=== PATIENT | female | born 2000 | race Caucasian/White ===

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

== ENCOUNTER 2022-02-18 04:51 | Emergency (ER) | payer OTHER ==
[2022-02-18 04:56] VITALS: BP 123/76; PULSE 75; RESP 16; TEMP 97.6
[2022-02-18 05:37] LABS: Appearance,Urine Turbid (Clear); Bilirubin,Urine Negative (Negative); Blood,Urine Large (Negative); Color,Urine Red; Glucose,Urine (UA) Negative (Negative); Ketones,Urine Negative (Negative); Leukocyte Esterase,Urine Large (Negative); Nitrite,Urine Negative (Negative); PH, Urine 6.5 (5.0-8.0); Protein,Urine 2+ (Negative); RBC,Urine >182 /hpf (0-5); Specific Gravity,Urine 1.021 (1.001-1.035); Urobilinogen,Urine <2.0 mg/dL (<2.0); WBC,Urine >182 /hpf (0-5)
[2022-02-18] MEDS ORDERED: KETOROLAC 15 MG/ML 1 ML VIAL IM STA (06:46)
--- NOTE | 2022-02-18 06:48 | ED ---
General Adult HPI - General Chief complaint: Abdominal Pain Stated complaint: Abdominal pain Time Seen by Provider: 02/18/22 06:32 Source: patient, RN notes reviewed Mode of arrival: ambulatory Limitations: no limitations - History of Present Illness Initial comments: Patient is a 21-year-old female presenting to the emergency department from home with complaints of lower abdominal pain which she notes is at the near her inguinal area and hematuria. She denies any gross hematuria at this time. She reports that the pain in her pelvic region is worse with urination. She reports some nausea but denies any vomiting or diarrhea. She denies any chest pain, shortness of breath, or flank pain. She does report some occasional hot and cold flashes but reports not checking her temperature. She recently had her menstrual cycle and is not concerned regarding or STDs. She has a past medical history significant for recurrent UTIs with her last UTI approximately 3 months ago. She also has a history of ovarian cysts. She denies any other medical history. - Related Data Previous Rx's Medication Instructions Recorded Amoxicillin 1,000 mg PO Q12H 10 Days capsule 05/12/16 Sulfamethox-Tmp 800-160Mg [Bactrim 1 tab PO Q12HR 5 Days #10 tab 02/18/22 DS 800-160 mg] Allergies Allergy/AdvReac Type Severity Reaction Status Date / Time codeine Allergy Unknown Verified 02/18/22 04:52 Review of Systems ROS Statement: Those systems with pertinent positive or pertinent negative responses have been documented in the HPI. ROS Other: All systems not noted in ROS Statement are negative. Past Medical History Past Medical History: No Reported History History of Any Multi-Drug Resistant Organisms: None Reported Past Surgical History: No Surgical Hx Reported Additional Past Surgical History / Comment(s): ovarian cyst Past Psychological History: Anxiety Smoking Status: Vaper Past Alcohol Use History: None Reported Past Drug Use History: None Reported General Exam - General Exam Comments Initial Comments: GENERAL: No acute distress, well developed, well nourished. HEENT: Normocephalic, atraumatic. Pupils equal, round, reactive to light. Moist mucous membranes. LUNGS: No respiratory distress. Clear to auscultation, no adventitious sounds, no use of accessory muscles. HEART: Regular rate and rhythm without murmur, rub, or gallop. ABDOMEN: Normal bowel sounds. Soft, non-distended. Right pelvic region tenderness. BACK: Normal inspection. No CVA tenderness. EXTREMITIES: No edema. No tenderness. Moves all extremities. NEUROLOGIC: Alert & oriented x 3. CN II-XII grossly intact. PSYCHIATRIC: Normal affect and behavior. DERMATOLOGIC: Skin intact, without rashes or lesions noted. Limitations: no limitations Course Vital Signs 02/18/22 04:53 Temperature 97.6 F Pulse Rate 75 Respiratory 16 Rate Blood Pressure 123/76 O2 Sat by Pulse 100 Oximetry Medical Decision Making - Medical Decision Making Was pt. sent in by a medical professional or institution? @ -No Did you speak to anyone other than the patient for history? @ -No Did you review nursing and triage notes? @ -Yes and agree except pain is in the pelvic region not the abdomen. Were old charts reviewed? @ -No Differential Diagnosis? @ -Differential Abdominal Pain Women: Appendicitis, Cholecystitis, diverticulosis, ischemic bowel, pancreatitis, hepatitis, UTI, gastroenteritis, AAA, incarcerated hernia, bowel obstruction, constipation, inflammatory bowel, hepatitis, peptic ulcer disease, splenic infarction, perforated viscus, vulvitis, ovarian torsion, PID, kidney stone, placenta abruption, this is not meant to be an all-inclusive list EKG interpreted by me (3pts min.)? @ -None X-rays interpreted by me (1pt min.)? @ -None CT interpreted by me (1pt min.)? @ -None U/S interpreted by me (1pt. min.)? @ -None What testing was considered but not performed? (CT, X-rays, U/S, labs)? Why? @No What meds were considered but not given? Why? @ -None Did you discuss the management of the patient with other professionals? @ -No Did you reconcile home meds? @ -No home medications Was smoking cessation discussed for >3mins.? @ -No Was critical care preformed (if so, how long)? @ -None Were there social determinants of health that impacted care today? How? (Homelessness, low income, unemployed, alcoholism, drug addiction, transportation, low edu. Level, literacy, decrease access to med. care, penitentiary, rehab)? @ -No Was there de-escalation of care discussed even if they declined? (Discuss DNR or withdrawal of care, Hospice)? @ -No What co-morbidities impacted this encounter? (DM, HTN, Smoking, COPD, CAD, Cancer, CVA, Hep., AIDS, mental health diagnosis, sleep apnea, morbid obesity)? @ -Recurrent UTIs Was patient admitted / discharged? @ -Right pelvic pain with dysuria. Pain worse with urination. Computed in triage with leukocyte esterase, no bacteria seen however given amount of RBCs and WBCs suspect UTI with cystitis. Toradol given for pain with some improvement in symptoms. Will defer further diagnostic imaging and laboratory studies in the setting of afebrile and hemodynamically stable without previous treatment for UTI. Education regarding recurrent UTIs and hematuria reviewed. Return parameters to the emergency department discussed. Will discharge home in stable condition on antibiotic therapy for UTI and follow-up with her primary care provider. Undiagnosed new problem with uncertain prognosis? @ -None Drug Therapy requiring intensive monitoring for toxicity (Heparin, Nitro, Insulin, Cardizem)? @ -None Were any procedures done? @ -None Diagnosis/symptom? @ -UTI Acute, or Chronic, or Acute on Chronic? @ -Acute Uncomplicated (without systemic symptoms) or Complicated (systemic symptoms)? @ -Uncomplicated Side effects of treatment? @ -None Exacerbation, Progression, or Severe Exacerbation] @ -No Poses a threat to life or bodily function? @ -No Case discussed with Dr. Mooney - Lab Data Lab Results 02/18/22 02/18/22 Range/Units 05:03 05:03 Urine Color Red Urine Appearance Turbid H (Clear) Urine pH 6.5 (5.0-8.0) Ur Specific [place] 1.021 (1.001-1.035) Urine Protein 2+ H (Negative) Urine Glucose (UA) Negative (Negative) Urine Ketones Negative (Negative) Urine Blood Large H (Negative) Urine Nitrite Negative (Negative) Urine Bilirubin Negative (Negative) Urine Urobilinogen <2.0 (<2.0) mg/dL Ur Leukocyte Esterase Large H (Negative) Urine RBC >182 H (0-5) /hpf Urine WBC >182 H (0-5) /hpf Urine HCG, Qual Not Detected (Not Detectd) Disposition Clinical Impression: UTI (urinary tract infection), Microscopic hematuria Disposition: HOME SELF-CARE Condition: Stable Instructions (If sedation given, give patient instructions): Urinary Tract Infection in Women (ED), Hematuria (ED) Additional Instructions: Please complete course of antibiotic therapy as prescribed. Stay well hydrated drinking plenty of water. Please follow-up with your primary care provider. Please return to the Emergency Department if symptoms worsen or any other concerns. Prescriptions: Sulfamethox-Tmp 800-160Mg [Bactrim DS 800-160 mg] 1 tab PO Q12HR 5 Days #10 tab Is patient prescribed a controlled substance at d/c from ED?: No Referrals: None,Stated [Primary Care Provider] - 1-2 days Time of Disposition: 06:56
== END 2022-02-18 07:09 | disposition home or self-care (01) ==
LOC: EC 04:51
DX: N39.0 Urinary tract infection, site not specified (principal); R31.29 Other microscopic hematuria; F41.9 Anxiety disorder, unspecified; F17.290 Nicotine dependence, other tobacco product, uncomplicated; Z88.8 Allergy status to other drugs, medicaments and biological substances
CPT/HCPCS: 81001; 81025; 87086; 99284; 96372; J1885

== ENCOUNTER 2022-09-20 23:05 | Emergency (ER) | payer OTHER ==
[2022-09-20 23:10] VITALS: TEMP 98.5
[2022-09-20] MEDS ORDERED: PSEUDOEPHEDRINE 30 MG TAB PO STA (23:47)
--- NOTE | 2022-09-21 01:42 | ED ---
General Adult HPI - General Chief complaint: Upper Respiratory Infection Stated complaint: Body Aches, Sore throat, head ache Time Seen by Provider: 09/20/22 23:10 Source: patient Mode of arrival: ambulatory Limitations: no limitations - History of Present Illness Initial comments: 22-year-old female presents to the emergency department reporting cold-like symptoms. She is currently 7 months . States that she has been dealing with nonproductive cough, headache, nasal congestion, sore throat and sneezing for the past 2 days. Denies any fevers. No difficulty breathing. No chest pain. She has not taken anything for her symptoms. She denies any abdominal pain. No vaginal bleeding or discharge. Continues to feel movement. Denies any sick contacts with similar symptoms. No other alleviating, precipitating or modifying factors - Related Data Previous Rx's Medication Instructions Recorded Amoxicillin 1,000 mg PO Q12H 10 Days capsule 05/12/16 Sulfamethox-Tmp 800-160Mg [Bactrim 1 tab PO Q12HR 5 Days #10 tab 02/18/22 DS 800-160 mg] Albuterol Inhaler [Ventolin Hfa 1 - 2 puff INHALATION Q6H PRN #1 09/21/22 Inhaler] each Pseudoephedrine [Sudafed] 30 mg PO Q6H PRN #30 tablet 09/21/22 Allergies Allergy/AdvReac Type Severity Reaction Status Date / Time codeine Allergy Unknown Verified 02/18/22 04:52 Review of Systems ROS Statement: Those systems with pertinent positive or pertinent negative responses have been documented in the HPI. ROS Other: All systems not noted in ROS Statement are negative. Past Medical History Past Medical History: No Reported History History of Any Multi-Drug Resistant Organisms: None Reported Past Surgical History: No Surgical Hx Reported Additional Past Surgical History / Comment(s): ovarian cyst Past Psychological History: Anxiety Smoking Status: Vaper Past Alcohol Use History: None Reported Past Drug Use History: None Reported General Exam Limitations: no limitations General appearance: alert, in no apparent distress Head exam: Present: atraumatic, normocephalic, normal inspection Eye exam: Present: normal appearance, PERRL, EOMI. Absent: scleral icterus, conjunctival injection, periorbital swelling ENT exam: Present: other (Clear rhinorrhea, effusion behind bilateral TMs) Neck exam: Present: normal inspection. Absent: tenderness, meningismus, lymphadenopathy Respiratory exam: Present: normal lung sounds bilaterally. Absent: respiratory distress, wheezes, rales, rhonchi, stridor Cardiovascular Exam: Present: regular rate, normal rhythm, normal heart sounds. Absent: systolic murmur, diastolic murmur, rubs, gallop, clicks GI/Abdominal exam: Present: soft, normal bowel sounds. Absent: distended, tenderness, guarding, rebound, rigid Extremities exam: Present: normal inspection, full ROM, normal capillary refill. Absent: tenderness, pedal edema, joint swelling, calf tenderness Back exam: Present: normal inspection Neurological exam: Present: alert, oriented X3, CN II-XII intact Psychiatric exam: Present: normal affect, normal mood Skin exam: Present: warm, dry, intact, normal color. Absent: rash Course Vital Signs 09/20/22 09/21/22 23:07 01:48 Temperature 98.5 F Pulse Rate 70 88 Respiratory 16 20 Rate Blood Pressure 121/80 109/74 O2 Sat by Pulse 98 98 Oximetry Medical Decision Making - Medical Decision Making Was pt. sent in by a medical professional or institution (, PA, APPRENTICE STYLIST, urgent care, hospital, or assisted...) When possible be specific @ -No Did you speak to anyone other than the patient for history (EMS, parent, family, police, friend...)? What history was obtained from this source @ -No Did you review nursing and triage notes (agree or disagree)? Why? @ -I reviewed and agree with nursing and triage notes Were old charts reviewed (outside hosp., previous admission, EMS record, old EKG, old radiological studies, urgent care reports/EKG's, assisted records)? Report findings @ -No old charts were reviewed Differential Diagnosis (chest pain, altered mental status, abdominal pain women, abdominal pain men, vaginal bleeding, weakness, fever, dyspnea, syncope, headache, dizziness, GI bleed, back pain, seizure, CVA, palpatations, mental health, musculoskeletal)? @ -Upper respiratory infection, Covid, influenza, rsv EKG interpreted by me (3pts min.). @ -Not done X-rays interpreted by me (1pt min.). @ -None done CT interpreted by me (1pt min.). @ -None done U/S interpreted by me (1pt. min.). @ -None done What testing was considered but not performed or refused? (CT, X-rays, U/S, labs)? Why? @ -X-ray however patient is What meds were considered but not given or refused? Why? @ -Steroids however patient is Did you discuss the management of the patient with other professionals (professionals i.e. , PA, APPRENTICE STYLIST, lab, RT, psych nurse, group social worker, rabbler, teacher, learning officer, complex case manager)? Give summary @ -No Was smoking cessation discussed for >3mins.? @ -No Was critical care preformed (if so, how long)? @ -No Were there social determinants of health that impacted care today? How? (Homelessness, low income, unemployed, alcoholism, drug addiction, transportation, low edu. Level, literacy, decrease access to med. care, correction, rehab)? @ -No Was there de-escalation of care discussed even if they declined (Discuss DNR or withdrawal of care, Hospice)? DNR status @ -No What co-morbidities impacted this encounter? (DM, HTN, Smoking, COPD, CAD, Cancer, CVA, ARF, Chemo, Hep., AIDS, mental health diagnosis, sleep apnea, morbid obesity)? @ -None Was patient admitted / discharged? Hospital course, mention meds given and route, prescriptions, significant lab abnormalities, going to OR and other pertinent info. @ -Upon arrival patient was placed in room 29. A thorough history and physical exam was performed. Patient is swabbed for influenza, Covid, RSV and strep. Testing does return and is negative. She was given a dose of Sudafed the emergency department. Reevaluated and states she has had some improvement in her symptoms. At this time the patient will be discharged home. Given prescription for an albuterol inhaler. Instructed to take Tylenol for any pain. He also take Benadryl for runny nose and sneezing. Follow up with her ELECTRICIAN HELPER and return for any new or worsening symptoms per patient was agreeable to plan and she was discharged in stable condition Undiagnosed new problem with uncertain prognosis? @ -No Drug Therapy requiring intensive monitoring for toxicity (Heparin, Nitro, Insulin, Cardizem)? @ -No Were any procedures done? @ -No Diagnosis/symptom? @ -acute uti, second trimester Acute, or Chronic, or Acute on Chronic? @ -acute Uncomplicated (without systemic symptoms) or Complicated (systemic symptoms)? @ complicated Side effects of treatment? @ -No Exacerbation, Progression, or Severe Exacerbation? @ -No Poses a threat to life or bodily function? How? (Chest pain, [place], [place], pneumonia, PE, COPD, DKA, ARF, appy, cholecystitis, CVA, Diverticulitis, Homicidal, Suicidal, threat to staff... and all critical care pts) @ -No - Lab Data Lab Results 09/20/22 09/20/22 Range/Units 23:43 23:43 Influenza Type A (PCR) Not Detected (Not Detectd) Influenza Type B (PCR) Not Detected (Not Detectd) RSV (PCR) Not Detected (Not Detectd) SARS-CoV-2 (PCR) Not Detected (Not Detectd) Group A Strep (PCR) NOT DETECTED (Not Detectd) Disposition Clinical Impression: Cough, Nasal congestion Disposition: HOME SELF-CARE Condition: Stable Instructions (If sedation given, give patient instructions): Upper Respiratory Infection (ED) Additional Instructions: Please take the medications as directed. Follow up with your doctor and return for any new or worsening symptoms Prescriptions: Pseudoephedrine [Sudafed] 30 mg PO Q6H PRN #30 tablet PRN Reason: Congestion Albuterol Inhaler [Ventolin Hfa Inhaler] 1 - 2 puff INHALATION Q6H PRN #1 each PRN Reason: cough Is patient prescribed a controlled substance at d/c from ED?: No Referrals: None,Stated [Primary Care Provider] - 1-2 days Time of Disposition: 01:42
[2022-09-21 01:49] VITALS: BP 109/74; PULSE 88; RESP 20
== END 2022-09-21 01:49 | disposition home or self-care (01) ==
LOC: EC 23:05
DX: R09.81 Nasal congestion (principal); R05.9 Cough, unspecified; F17.290 Nicotine dependence, other tobacco product, uncomplicated; Z86.59 Personal history of other mental and behavioral disorders; Z88.5 Allergy status to narcotic agent; Z20.822 Contact with and (suspected) exposure to COVID-19
CPT/HCPCS: 87636; 87651; 99283

== ENCOUNTER 2023-08-31 18:02 | Emergency (ER) | payer OTHER ==
--- NOTE | 2023-08-31 18:23 | ED ---
Abdominal Pain HPI - General Source: patient Mode of arrival: ambulatory Limitations: no limitations <Kamilah Post - Last Filed: 08/31/23 18:23> - General Source: patient, RN notes reviewed Mode of arrival: ambulatory Limitations: no limitations <Yvonne Rubin - Last Filed: 09/02/23 03:34> - General Chief Complaint: Abdominal Pain Stated Complaint: L Side Pelvic Pain Time Seen by Provider: 08/31/23 18:23 - History of Present Illness Initial Comments: 23-year-old female presenting with chief complaint of abdominal pain. Located on the left lower side of the abdomen. Has history of ovarian cysts. LMP was at the end of last month. No vaginal bleeding today. (Kamilah Post) 23-year-old female presented to the ER with a chief complaint of left lower quadrant abdominal pain. She states that been ongoing for approximately 1 week but has intensified in the past 24 hours. She does report a history of ovarian cyst and states this feels similar. Last menstrual period August 12. She denies any vaginal bleeding or discharge. She denies any nausea, vomiting, const ipation/diarrhea, fevers or chills. (Yvonne Rubin) - Related Data Previous Rx's Medication Instructions Recorded Amoxicillin 1,000 mg PO Q12H 10 Days capsule 05/12/16 Sulfamethox-Tmp 800-160Mg [Bactrim 1 tab PO Q12HR 5 Days #10 tab 02/18/22 DS 800-160 mg] Albuterol Inhaler [Ventolin Hfa 1 - 2 puff INHALATION Q6H PRN #1 09/21/22 Inhaler] each Pseudoephedrine [Sudafed] 30 mg PO Q6H PRN #30 tablet 09/21/22 Allergies Allergy/AdvReac Type Severity Reaction Status Date / Time codeine Allergy Unknown Verified 08/31/23 18:19 Review of Systems ROS Other: All systems not noted in ROS Statement are negative. <Kamilah Post - Last Filed: 08/31/23 18:23> ROS Other: All systems not noted in ROS Statement are negative. <Yvonne Rubin - Last Filed: 09/02/23 03:34> ROS Statement: Those systems with pertinent positive or pertinent negative responses have been documented in the HPI. Past Medical History Past Medical History: No Reported History History of Any Multi-Drug Resistant Organisms: None Reported Past Surgical History: Section Additional Past Surgical History / Comment(s): ovarian cyst Past Psychological History: Anxiety Smoking Status: Vaper Past Alcohol Use History: None Reported Past Drug Use History: None Reported <Kamilah Post - Last Filed: 08/31/23 18:23> General Exam Limitations: no limitations <Kamilah Post - Last Filed: 08/31/23 18:23> Limitations: no limitations General appearance: alert, in no apparent distress Respiratory exam: Present: normal lung sounds bilaterally. Absent: respiratory distress, wheezes, rales, rhonchi, stridor Cardiovascular Exam: Present: regular rate, normal rhythm, normal heart sounds. Absent: systolic murmur, diastolic murmur, rubs, gallop, clicks GI/Abdominal exam: Present: soft, tenderness (Left lower quadrant), normal bowel sounds Neurological exam: Present: alert, oriented X3, CN II-XII intact Skin exam: Present: warm, dry, intact, normal color. Absent: rash <Yvonne Rubin - Last Filed: 09/02/23 03:34> - General Exam Comments Initial Comments: Visual Physical Exam Vital signs reviewed General: Well-appearing, nontoxic, no acute distress. Head: Normocephalic, atraumatic Eyes: PERRLA, EOMI ENT: Airway patent Chest: Nonlabored breathing Skin: No visual rash, normal skin tone Neuro: Alert and oriented 3 Musculoskeletal: No gross abnormalities (Kamilah Post) Course Vital Signs 08/31/23 08/31/23 18:17 22:43 Temperature 98.5 F 98.2 F Pulse Rate 92 80 Respiratory 18 17 Rate Blood Pressure 116/76 108/67 O2 Sat by Pulse 98 100 Oximetry Medical Decision Making <Kamilah Post - Last Filed: 08/31/23 18:23> - Lab Data Result diagrams: 08/31/23 19:53 08/31/23 19:53 - Radiology Data Radiology results: report reviewed, image reviewed <Yvonne Rubin - Last Filed: 09/02/23 03:34> - Medical Decision Making I performed the quick note portion of this visit, electronically signed Kamilah Joseph PA-C) Was pt. sent in by a medical professional or institution ([facility], [employer]ER, urgent care, hospital, or fpc...) When possible be specific @ -No Did you speak to anyone other than the patient for history (EMS, parent, family, police, friend...)? What history was obtained from this source @ -No Did you review nursing and triage notes (agree or disagree)? Why? @ -I reviewed and agree with nursing and triage notes Were old charts reviewed (outside hosp., previous admission, EMS record, old EKG, old radiological studies, urgent care reports/EKG's, fpc records)? Report findings @ -No old charts were reviewed Differential Diagnosis (chest pain, altered mental status, abdominal pain women, abdominal pain men, vaginal bleeding, weakness, fever, dyspnea, syncope, headache, dizziness, GI bleed, back pain, seizure, CVA, palpatations, mental health, musculoskeletal)? @ -Differential Abdominal Pain Women: Appendicitis, Cholecystitis, diverticulosis, ischemic bowel, pancreatitis, hepatitis, UTI, gastroenteritis, AAA, incarcerated hernia, bowel obstruction, constipation, inflammatory bowel, hepatitis, peptic ulcer disease, splenic infarction, perforated viscus, vulvitis, ovarian torsion, PID, kidney stone, placenta abruption, this is not meant to be an all-inclusive list EKG interpreted by me (3pts min.). @ -None X-rays interpreted by me (1pt min.). @ -None done CT interpreted by me (1pt min.). @- CT abdomen pelvis significant for a right ovarian dominant follicle measuring up to 25 mm. No other acute intra-abdominal process. U/S interpreted by me (1pt. min.). @ -Right ovarian probable cyst measuring up to 2.9 cm. Appropriate arterial flow to right ovary. Left ovary unable to be visualized due to overlying bowel. No obvious acute process. What testing was considered but not performed or refused? (CT, X-rays, U/S, labs)? Why? @ -None What meds were considered but not given or refused? Why? @ -None Did you discuss the management of the patient with other professionals (professionals i.e. [facility], [employer] BUILDING [employer]SEMBLER, lab, RT, psych nurse, social work specialist, wood router hand, teacher, loss prevention officer, porter sample case)? Give summary @ -No Was smoking cessation discussed for >3mins.? @ -No Was critical care preformed (if so, how long)? @ -No Were there social determinants of health that impacted care today? How? (Homelessness, low income, unemployed, alcoholism, drug addiction, transportation, low edu. Level, literacy, decrease access to med. care, prison, rehab)? @ -No Was there de-escalation of care discussed even if they declined (Discuss DNR or withdrawal of care, Hospice)? DNR status @ -No What co-morbidities impacted this encounter? (DM, HTN, Smoking, COPD, CAD, Cancer, CVA, ARF, Chemo, Hep., AIDS, mental health diagnosis, sleep apnea, morbid obesity)? @ -None Was patient admitted / discharged? Hospital course, mention meds given and route, prescriptions, significant lab abnormalities, going to OR and other pertinent info. @ -Discharge. 23-year-old female presented to the ER with a chief complaint of left lower quadrant abdominal pain. History and physical exam completed. Vitals stable. Patient in no signs of acute distress and nontoxic-appearing. Exam remarkable for left lower quadrant abdominal tenderness with normal bowel sounds. No rebound or guarding. Laboratory studies obtained nonspecific. Urine analysis negative for evidence of infection. Urine hCG negative. U ltrasound initially obtained showing a right ovarian probable cyst measuring up to 2.9 cm. Appropriate arterial and venous waveforms to right ovary. Left ovary unable to be visualized due to overlying bowel. CT abdomen pelvis obtained at that time to evaluate left ovary. CT remarkable for right ovarian dominant follicle measuring up to 25 mm. No obvious acute intra-abdominal process to explain left lower quadrant pain. Patient received IV fluids in the ER. Upon reevaluation, patient resting comfortably on stretcher no signs of acute distress. Results discussed with patient, all questions answered. Patient stable for discharge. Return parameters discussed. Patient discharged stable condition. Patient verbally expressed understanding and agreement with care plan. Case discussed with ED attending, Dr. Bailey Undiagnosed new problem with uncertain prognosis? @ -No Drug Therapy requiring intensive monitoring for toxicity (Heparin, Nitro, Insulin, Cardizem)? @ -No Were any procedures done? @ -No Diagnosis/symptom? @ -Ovarian cyst/abdominal pain Acute, or Chronic, or Acute on Chronic? @ -Acute Uncomplicated (without systemic symptoms) or Complicated (systemic symptoms)? @ -Uncomplicated Side effects of treatment? @ -No Exacerbation, Progression, or Severe Exacerbation? @ -No Poses a threat to life or bodily function? How? (Chest pain, USA, MA, pneumonia, PE, COPD, DKA, ARF, appy, cholecystitis, CVA, Diverticulitis, Homicidal, Suicidal, threat to staff... and all critical care pts) @ -No (Yvonne Rubin) - Lab Data Lab Results 08/31/23 08/31/23 08/31/23 Range/Units 19:53 19:53 19:53 WBC 7.7 (3.8-10.6) k/uL RBC 4.35 (3.80-5.40) m/uL Hgb 11.2 L (11.4-16.0) gm/dL Hct 34.5 (34.0-46.0) % MCV 79.5 L (80.0-100.0) fL MCH 25.8 (25.0-35.0) pg MCHC 32.4 (31.0-37.0) g/dL RDW 15.2 (11.5-15.5) % Plt Count 322 (150-450) k/uL MPV 8.8 Neutrophils % 68 % Lymphocytes % 26 % Monocytes % 5 % Eosinophils % 1 % Basophils % 0 % Neutrophils # 5.2 (1.3-7.7) k/uL Lymphocytes # 2.0 (1.0-4.8) k/uL Monocytes # 0.4 (0-1.0) k/uL Eosinophils # 0.1 (0-0.7) k/uL Basophils # 0.0 (0-0.2) k/uL Hypochromasia Slight Sodium (137-145) mmol/L Potassium (3.5-5.1) mmol/L Chloride (98-107) mmol/L Carbon Dioxide (22-30) mmol/L Anion Gap mmol/L BUN (7-17) mg/dL Creatinine (0.52-1.04) mg/dL Est GFR (CKD-EPI)AfAm (>60 ml/min/1.73 sqM) Est GFR (CKD-EPI)NonAf (>60 ml/min/1.73 sqM) Glucose (74-99) mg/dL Plasma Lactic Acid Jeff (0.7-2.0) mmol/L Calcium (8.4-10.2) mg/dL Total Bilirubin (0.2-1.3) mg/dL AST (14-36) U/L ALT (4-34) U/L Alkaline Phosphatase (38-126) U/L Total Protein (6.3-8.2) g/dL Albumin (3.5-5.0) g/dL Urine Color Colorless Urine Appearance Clear (Clear) Urine pH 6.0 (5.0-8.0) Ur Specific [place] 1.007 (1.001-1.035) Urine Protein Negative (Negative) Urine Glucose (UA) Negative (Negative) Urine Ketones Negative (Negative) Urine Blood Negative (Negative) Urine Nitrite Negative (Negative) Urine Bilirubin Negative (Negative) Urine Urobilinogen <2.0 (<2.0) mg/dL Ur Leukocyte Esterase Moderate H (Negative) Urine RBC 1 (0-5) /hpf Urine WBC 2 (0-5) /hpf Ur Squamous Epith Cells 2 (0-4) /hpf Urine Mucus Rare H (None) /hpf Urine HCG, Qual Not Detected (Not Detectd) 08/31/23 08/31/23 Range/Units 19:53 19:53 WBC (3.8-10.6) k/uL RBC (3.80-5.40) m/uL Hgb (11.4-16.0) gm/dL Hct (34.0-46.0) % MCV (80.0-100.0) fL MCH (25.0-35.0) pg MCHC (31.0-37.0) g/dL RDW (11.5-15.5) % Plt Count (150-450) k/uL MPV Neutrophils % % Lymphocytes % % Monocytes % % Eosinophils % % Basophils % % Neutrophils # (1.3-7.7) k/uL Lymphocytes # (1.0-4.8) k/uL Monocytes # (0-1.0) k/uL Eosinophils # (0-0.7) k/uL Basophils # (0-0.2) k/uL Hypochromasia Sodium 136 L (137-145) mmol/L Potassium 4.0 (3.5-5.1) mmol/L Chloride 106 (98-107) mmol/L Carbon Dioxide 23 (22-30) mmol/L Anion Gap 7 mmol/L BUN 10 (7-17) mg/dL Creatinine 0.48 L (0.52-1.04) mg/dL Est GFR (CKD-EPI)AfAm >90 (>60 ml/min/1.73 sqM) Est GFR (CKD-EPI)NonAf >90 (>60 ml/min/1.73 sqM) Glucose 109 H (74-99) mg/dL Plasma Lactic Acid Jeff 1.1 (0.7-2.0) mmol/L Calcium 9.3 (8.4-10.2) mg/dL Total Bilirubin 0.4 (0.2-1.3) mg/dL AST 27 (14-36) U/L ALT 15 (4-34) U/L Alkaline Phosphatase 96 (38-126) U/L Total Protein 7.0 (6.3-8.2) g/dL Albumin 4.0 (3.5-5.0) g/dL Urine Color Urine Appearance (Clear) Urine pH (5.0-8.0) Ur Specific [place] (1.001-1.035) Urine Protein (Negative) Urine Glucose (UA) (Negative) Urine Ketones (Negative) Urine Blood (Negative) Urine Nitrite (Negative) Urine Bilirubin (Negative) Urine Urobilinogen (<2.0) mg/dL Ur Leukocyte Esterase (Negative) Urine RBC (0-5) /hpf Urine WBC (0-5) /hpf Ur Squamous Epith Cells (0-4) /hpf Urine Mucus (None) /hpf Urine HCG, Qual (Not Detectd) Disposition <Kamilah Post - Last Filed: 08/31/23 18:23> Is patient prescribed a controlled substance at d/c from ED?: No Time of Disposition: 22:34 <Yvonne Rubin - Last Filed: 09/02/23 03:34> Clinical Impression: Abdominal pain, Ovarian cyst Disposition: HOME SELF-CARE Condition: Stable Instructions (If sedation given, give patient instructions): Abdominal Pain (ED) Additional Instructions: Follow-up with PCP. Return to the ER for any new or worsening concerns. Referrals: None,Stated [Primary Care Provider] - 1-2 days Forms: Area PCPs
--- NOTE | 2023-08-31 19:27 | US ---
EXAMINATION TYPE: US transvaginal DATE OF EXAM: 08/31/2023 COMPARISON: NONE CLINICAL INDICATION: Female, 23 years old with history of L sided pelvic pain; Patient states lt side d pain for 2 days. Hx of left ovarian cyst w surgery. C section. A0 TECHNIQUE: Transvaginal (TV). Transvaginal sonographic images were medically necessary to better as sess the following anatomy: Ovaries Date of LMP: 08/11/2023 EXAM MEASUREMENTS: Uterus: 8.4 x 4.4 x 4.9 cm Endometrial Stripe: 1.1 cm Right Ovary: 3.9 x 4.0 x 4.0 cm Left Ovary: Unable to visualize due to bowel. Limited due to overlying bowel 1. Uterus: Anteverted WNL as best seen 2. Endometrium: Echogenic, WNL 3. Right Ovary: There is a 2.7 x 2.9 x 2.8cm anechoic appearing lesion seen within the right ovary. 4. Left Ovary: Unable to visualize due to overlying bowel Spectral, color and waveform doppler imaging shows good arterial and venous flow within the ovaries ; there is no evidence for ovarian torsion. 5. Bilateral Adnexa: WNL as best seen 6. Posterior cul-de-sac: wnl IMPRESSION: Right ovarian probable cysts measuring up to 2.9 cm. There is appropriate arterial and ve nous waveforms to the right ovary. Left ovary is not visualized due to overlying bowel. No obvious ac [place] process.
[2023-08-31 20:35] LABS: ALT 15 U/L (4-34); AST 27 U/L (14-36); African American GFR (CKD) >90 (>60 ml/min/1.73 sqM); Alkaline Phosphatase 96 U/L (38-126); Anion Gap 7 mmol/L; Blood Urea Nitrogen 10 mg/dL (7-17); Calcium 9.3 mg/dL (8.4-10.2); Carbon Dioxide 23 mmol/L (22-30); Chloride 106 mmol/L (98-107); Glucose 109 mg/dL (74-99); Non-African American GFR(CKD) >90 (>60 ml/min/1.73 sqM); Sodium 136 mmol/L (137-145); Total Bilirubin 0.4 mg/dL (0.2-1.3)
[2023-08-31 20:37] LABS: Appearance,Urine Clear (Clear); Bilirubin,Urine Negative (Negative); Blood,Urine Negative (Negative); Color,Urine Colorless; Glucose,Urine (UA) Negative (Negative); Ketones,Urine Negative (Negative); Leukocyte Esterase,Urine Moderate (Negative); Mucus,Urine Rare /hpf; Nitrite,Urine Negative (Negative); Protein,Urine Negative (Negative); RBC,Urine 1 /hpf (0-5); Specific Gravity,Urine 1.007 (1.001-1.035); Squamous Epithelial Cell,Urine 2 /hpf (0-4); Urobilinogen,Urine <2.0 mg/dL (<2.0); WBC,Urine 2 /hpf (0-5)
[2023-08-31] MEDS: SODIUM CHLORIDE 0.9% 1,000 ML IV STA (20:44)
[2023-08-31 20:52] LABS: Basophils % (A) 0 %; Eosinophils # (A) 0.1 k/uL (0-0.7); Eosinophils % (A) 1 %; HCT 34.5 % (34.0-46.0); HGB 11.2 gm/dL (11.4-16.0); Hypochromasia Slight; Lymphocytes % (A) 26 %; MCH 25.8 pg (25.0-35.0); MCHC 32.4 g/dL (31.0-37.0); MCV 79.5 fL (80.0-100.0); Mean Platelet Volume 8.8; Monocytes # (A) 0.4 k/uL (0-1.0); Monocytes % (A) 5 %; Neutrophils # (A) 5.2 k/uL (1.3-7.7); Neutrophils % (A) 68 %; Platelet Count 322 k/uL (150-450); RBC 4.35 m/uL (3.80-5.40); RDW 15.2 % (11.5-15.5); WBC 7.7 k/uL (3.8-10.6)
--- NOTE | 2023-08-31 22:05 | CT ---
EXAMINATION TYPE: CT abdomen pelvis w con CT DLP: 1090.9 mGycm, Automated exposure control for dose reduction was used. DATE OF EXAM: 08/31/2023 9:36 PM COMPARISON: None CLINICAL INDICATION:Female, 23 years old with history of LLQ abd pain hx ovarian cyst; LLQ abd pain h x ovarian cyst. TECHNIQUE: Axial CT abdomen pelvis w con;Sagittal and coronal reformats were created on a separate w orkstation. Contrast used:100 ml mL of Isovue 300 with IV Contrast, (none if empty) Oral contrast used: without Oral Contrast (none if empty) FINDINGS: LOWER CHEST: Unremarkable ABDOMEN LIVER: Unremarkable GALLBLADDER AND BILE DUCTS: Unremarkable. PANCREAS: Unremarkable. SPLEEN: Unremarkable. ADRENAL GLANDS: Unremarkable. KIDNEYS AND URETERS: No evidence of hydronephrosis or renal calculus. The ureters are unremarkable. PELVIS BLADDER: Unremarkable REPRODUCTIVE: Right ovarian dominant follicle measuring up to 25 mm. ABDOMEN & PELVIS STOMACH AND BOWEL: No evidence of bowel obstruction. PERITONEUM/RETROPERITONEUM: No evidence of pneumoperitoneum or free fluid. VASCULATURE: No evidence of aortic aneurysm. MUSCULOSKELETAL: No acute osseous abnormalities LYMPH NODES: No gross evidence for lymphadenopathy. SOFT TISSUE/ABDOMINAL WALL: Unremarkable IMPRESSION: 1. No obvious acute abdominal process to explain the patient's left lower quadrant pain 2. Right ovarian dominant follicle measuring up to 25 mm.
[2023-08-31 22:44] VITALS: BP 108/67; PULSE 80; RESP 17; TEMP 98.2
== END 2023-08-31 22:45 | disposition home or self-care (01) ==
LOC: EC 18:02
DX: N83.202 Unspecified ovarian cyst, left side (principal); F17.290 Nicotine dependence, other tobacco product, uncomplicated; Z88.5 Allergy status to narcotic agent
CPT/HCPCS: 36415; 80053; 83605; 85025; 81001; 81025; 93976; 76830; 74177; 99284; 96360; 96361; Q9967

== ENCOUNTER 2024-09-08 06:19 | Inpatient (IN) | payer OTHER ==
[2024-09-08] MEDS ORDERED: TRANEXAMIC 1,000 MG/100ML-NACL 1,000 MG in EMPTY BAG 1 BAG IV PRN (06:26)
[2024-09-08] MEDS ORDERED: OXYTOCIN 10 UNIT/ML 1 ML VIAL IM PRN (06:26)
[2024-09-08] MEDS ORDERED: CARBOPROST TROMETHAMINE 250 MCG/ML 1 ML AMP IM PRN (06:26)
[2024-09-08] MEDS ORDERED: METHYLERGONOVINE 0.2 MG/ML 1 ML AMP IM PRN (06:26)
[2024-09-08] MEDS: LACTATED RINGERS 1,000 ML BAG IV STA (06:58)
[2024-09-08 07:23] LABS: Basophils # (A) 0.03 10*3/uL (0.00-0.10); Basophils % (A) 0.4 %; Eosinophils # (A) 0.05 10*3/uL (0.04-0.35); Eosinophils % (A) 0.6 %; HCT 29.5 % (37.2-46.3); HGB 9.2 g/dL (12.0-15.0); Lymphocytes # (A) 2.53 10*3/uL (0.90-5.00); Lymphocytes % (A) 32.1 %; MCH 23.6 pg (27.0-32.0); MCHC 31.2 g/dL (32.0-37.0); MCV 75.6 fL (80.0-97.0); Monocytes # (A) 0.45 10*3/uL (0.20-1.00); Monocytes % (A) 5.7 %; Neutrophils # (A) 4.79 10*3/uL (1.80-7.70); Neutrophils % (A) 60.8 %; Platelet Count 413 10*3/uL (140-440); RBC 3.90 10*6/uL (4.10-5.20); RDW 16.1 % (11.5-14.5); WBC 7.88 10*3/uL (4.50-10.00)
[2024-09-08] MEDS: CITRIC ACID-SODIUM CITRATE 15 ML CUP PO ONE (07:33)
[2024-09-08] MEDS ORDERED: OXYTOCIN 30 UNITS/500 ML NS BAG IV ONE (08:00)
[2024-09-08] MEDS ORDERED: DEXAMETHASONE SOD PHOSPHATE 4 MG/ML 1 ML VIAL ONE (08:00)
[2024-09-08] MEDS ORDERED: MORPHINE SULFATE (PF) 0.3 MG/0.3 ML SYR ONE (08:00)
[2024-09-08] MEDS ORDERED: ePHEDrine 50 MG/ML 1 ML VIAL ONE (08:00)
[2024-09-08] MEDS ORDERED: KETOROLAC 15 MG/ML 1 ML VIAL ONE (08:00)
[2024-09-08] MEDS ORDERED: ONDANSETRON 4 MG/2 ML VIAL ONE (08:00)
[2024-09-08] MEDS ORDERED: NALBUPHINE (ANES) 10 MG/ML - 1 ML AMP ONE (08:00)
[2024-09-08] MEDS ORDERED: CELLULOSE,OXIDIZED 1 EACH EACH MISCELLANE ONE (08:45)
--- NOTE | 2024-09-08 09:17 | P.HPOB ---
History of Present Illness H&P Date: 09/08/24 Chief Complaint: Scheduled repeat section Ms. Sapp is a 24 year old at 39 weeks and 2 days gestation with EDC of 09/13/2024 by LMP consistent with 1st trimester US who presents for scheduled repeat section. Her has been essentially uncomplicated. The fetus is estimated in the 39%ile based on a 33 week growth US. Obstetric history: 1 [facility] for nrFHTs work-up: blood type O negative (s/p rhogam at 28 weeks), antibody screen negative, rubella immune, VDRL non-reactive, HBsAg negative, HIV negative, HCV negative, gonorrhea negative, chlamydia negative, 1 hour GTT wnl, GBS negative Past Medical History Past Medical History: No Reported History History of Any Multi-Drug Resistant Organisms: None Reported Past Surgical History: Section Additional Past Surgical History / Comment(s): ovarian cyst Past Anesthesia/Blood Transfusion Reactions: No Reported Reaction Past Psychological History: Anxiety Smoking Status: Vaper Past Alcohol Use History: None Reported Past Drug Use History: None Reported Medications and Allergies Allergies Allergy/AdvReac Type Severity Reaction Status Date / Time codeine Allergy Unknown Verified 09/08/24 06:25 Exam Intake and Output 09/07/24 09/08/24 09/08/24 22:59 06:59 14:59 Other: Weight 92.986 kg Focused physical exam is performed. This is a healthy-appearing in no apparent distress. Breathing is non-labored. Abdomen is gravid and non-tender. Extremities non-tender and non-edematous. heart tones are reactive and reassuring. Results Result Diagrams: 09/08/24 06:50 Abnormal Lab Results - Last 24 Hours (Table) 09/08/24 Range/Units 06:50 RBC 3.90 L (4.10-5.20) 10*6/uL Hgb 9.2 L (12.0-15.0) g/dL Hct 29.5 L (37.2-46.3) % MCV 75.6 L (80.0-97.0) fL MCH 23.6 L (27.0-32.0) pg MCHC 31.2 L (32.0-37.0) g/dL Assessment and Plan Assessment: 24 year old at 39 weeks and 2 days presenting for scheduled repeat section Plan: Admit, NPO, initiate protocol
[2024-09-08] MEDS ORDERED: diphenhydrAMINE 25 MG CAP PO PRN (09:27)
[2024-09-08] MEDS ORDERED: ONDANSETRON 4 MG/2 ML VIAL IVP PRN (09:27)
[2024-09-08] MEDS ORDERED: METOCLOPRAMIDE 5 MG/ML 2 ML VIAL IVP PRN (09:27)
[2024-09-08] MEDS ORDERED: diphenhydrAMINE 50 MG/ML 1 ML VIAL IVP PRN ×2 (09:27)
[2024-09-08] MEDS ORDERED: NALOXONE 0.4 MG/ML 1 ML VIAL IV PRN (09:27)
[2024-09-08] MEDS ORDERED: ZOLPIDEM 5 MG TAB PO PRN (09:27)
[2024-09-08] MEDS ORDERED: SIMETHICONE 80 MG CHEWABLE PO PRN (09:27)
--- NOTE | 2024-09-08 09:27 | P.OP ---
Date of Procedure: 09/08/24 Preoperative Diagnosis: 1. Term IUP at 39+ weeks 2. History of prior section 3. No desire for TOLAC Postoperative Diagnosis: Same Procedure(s) Performed: Repeat Lower Transverse Section Implants: None Anesthesia: spinal Surgeon: June Arguello Cold Storage Supervisor #1: Flori Villalba Estimated Blood Loss (ml): 1,560 IV fluids (ml): 900 Urine output (ml): 200 Pathology: none sent Condition: stable Disposition: floor Indications for Procedure: Ms. Sapp is a 24 year old at 39 weeks and 2 days presenting for scheduled repeat section. The risks, benefits, and alternatives to section were discussed with the patient including risk of bleeding, infection, damage to surrounding structures including bladder/bowels/ureters, and post-operative VTE. The patient understands these risks and desires to proceed with section. 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 Colorless amniotic fluid. Viable male in cephalic presentation. Apgars 8/9. Weight 6 pounds and 0 ounces (2730 grams). Description of Procedure: The patient was taken back to the operating room where spinal anesthesia was found to be adequate. Two grams of Ancef were given for infection prophylaxis. She was prepared and draped in the dorsal supine position with a leftward tilt. A Pfannenstiel skin incision was made with the scalpel. The incision was carried down to the fascia with a bovie. The fascia was incised and extended laterally with Herman scissors. The superior aspect of the fascia was grasped with the Bertha clamps. The underlying rectus muscle was dissected off sharply with Herman scissors. In a similar fashion, the inferior aspect of the fascia was elevated with Bertha clamps and the rectus muscle and pyramidalis were dissected off. Excellent hemostasis was achieved with the bovie. The rectus muscle was in the midline down to the level of the pubic symphysis. Pre- peritoneal fatty tissue was bluntly dissected to expose the peritoneum. The peritoneum was found to be free of adherent bowel and entered sharply with Herman scissors. The peritoneal incision was extended superiorly and inferiorly to the bladder reflection with good visualization of the bladder. The bladder blade was inserted and vesicouterine peritoneum was identified. Intraabdominal survey revealed scant, clear peritoneal fluid and the thinned-out lower uterine segment. The bladder blade was repositioned to keep the bladder out of the operative field. The lower uterine segment was incised with a scalpel. The amniotic sac was ruptured with an Allis clamp and clear fluid was noted. The ut erine incision was extended bluntly with lateral and upward traction. The fetus was in cephalic presentation. The head was elevated out of the pelvis with special attention paid to avoid using the uterine incision as a fulcrum. Gentle fundal pressure was applied once the head was brought into the incision. The was delivered with no difficulty and was noted to be crying spontaneously. The mouth and nose were suctioned with a bulb. The cord was clamped and cut. The infant was handed off to the clothing supervisor. IV oxytocin was initiated to facilitate uterine contractions. The placenta was delivered intact with manual massage of uterine fundus. The uterus was then exteriorized and the inside of the uterus was gently wiped with a lap sponge to assure complete removal of placental membranes. The uterine incision was closed with 0-Vicryl suture in a running locked fashion. A second imbricating layer was placed with 0-Vicryl. Several stictches with 0-Vicryl were thrown in a figure of eight fashion around the proximal round ligament to facilitate hemostasis. A free-tie was used on the round ligament more distally for hemostasis of an area of bleeding. The ovaries were normal. Left fallopian tube very scarred with left round ligament. The uterus, tubes, and ovaries were then gently returned to the abdominal cavity. The abdomen was copiously suction irrigated. Surgicel powder was placed along the incision and left round ligament proximally. Interceed was used to prevent adidtional adhesion formation. The uterine incision was reinspected and excellent hemostasis was noted. The fascial layer was closed with a 0-Vicryl suture. The subcutaneous tissue was reapproximated with 2-0 Plain Gut. The skin was closed with 4-0 Monocryl in a subcuticular fashion.The patient tolerated the procedure well. All the counts were correct times two. The patient was taken to the recovery room in a stable condition. A physician surgical clinical reviewer was utilized for the entire procedure due to the nee d for tissue retraction, dissection of vital structures, prevention and management of blood loss, and reduction in overall operative and anesthesia time as is the standard of care.
[2024-09-08] MEDS: ACETAMINOPHEN TAB 500 MG TAB PO SCH (16:51)
[2024-09-08] MEDS: LACTATED RINGERS 1,000 ML IV SCH (16:53)
[2024-09-08] MEDS: Rhogam IMMUNE GLOBULIN 1,500 UNIT/1 ML IM ONE (17:27)
[2024-09-08 17:48] LABS: Basophils # (A) 0.01 10*3/uL (0.00-0.10); Basophils % (A) 0.1 %; Eosinophils # (A) 0.00 10*3/uL (0.04-0.35); Eosinophils % (A) 0.0 %; HCT 27.7 % (37.2-46.3); HGB 8.5 g/dL (12.0-15.0); Lymphocytes # (A) 0.85 10*3/uL (0.90-5.00); Lymphocytes % (A) 7.3 %; MCH 23.3 pg (27.0-32.0); MCHC 30.7 g/dL (32.0-37.0); MCV 75.9 fL (80.0-97.0); Monocytes # (A) 0.42 10*3/uL (0.20-1.00); Monocytes % (A) 3.6 %; Neutrophils # (A) 10.38 10*3/uL (1.80-7.70); Neutrophils % (A) 88.6 %; Platelet Count 375 10*3/uL (140-440); RBC 3.65 10*6/uL (4.10-5.20); RDW 16.4 % (11.5-14.5); WBC 11.71 10*3/uL (4.50-10.00)
[2024-09-08] MEDS: KETOROLAC 15 MG/ML 1 ML VIAL IVP SCH (21:00)
[2024-09-08] MEDS: SENNOSIDES-DOCUSATE SODIUM 1 EACH TAB PO SCH (21:00)
[2024-09-09 06:11] LABS: Basophils # (A) 0.02 10*3/uL (0.00-0.10); Basophils % (A) 0.2 %; Eosinophils # (A) 0.01 10*3/uL (0.04-0.35); Eosinophils % (A) 0.1 %; HCT 22.8 % (37.2-46.3); Lymphocytes # (A) 2.54 10*3/uL (0.90-5.00); Lymphocytes % (A) 27.9 %; MCH 23.7 pg (27.0-32.0); MCHC 30.7 g/dL (32.0-37.0); MCV 77.3 fL (80.0-97.0); Monocytes # (A) 0.66 10*3/uL (0.20-1.00); Monocytes % (A) 7.2 %; Neutrophils # (A) 5.86 10*3/uL (1.80-7.70); Neutrophils % (A) 64.3 %; Platelet Count 332 10*3/uL (140-440); RBC 2.95 10*6/uL (4.10-5.20); RDW 16.2 % (11.5-14.5); WBC 9.12 10*3/uL (4.50-10.00)
[2024-09-09 06:24] LABS: HGB 7.0 g/dL (12.0-15.0)
--- NOTE | 2024-09-09 10:13 | P.PN ---
Progress Note - Text Adequate analgesia. No anesthetic complications.
--- NOTE | 2024-09-09 11:26 | P.PNOBGPC ---
Subjective - Subjective Patient reports: Reports appetite normal, Reports voiding normally, Reports pain well controlled, Reports ambulating normally [place]: doing well Objective - Vital Signs Latest vital signs: Vital Signs Temp Pulse Resp BP Pulse Ox 09/09/24 08:00 97.9 F 87 16 92/58 98 09/09/24 04:00 98.1 F 82 16 93/58 99 09/09/24 00:00 98.5 F 87 16 93/60 97 09/08/24 20:00 97.4 F L 88 16 95/59 97 09/08/24 16:00 98.1 F 86 14 90/58 98 Intake and Output 09/08/24 09/09/24 09/09/24 22:59 06:59 14:59 Output Total 650 300 Balance -650 -300 Output: Urine 650 300 Other: # Voids 1 1 1 - Exam Extremities: Present: normal Abdomen: Present: normal appearance, soft. Absent: distention, tenderness Incision: Present: normal, dry, intact Uterus: Present: normal, firm (The uterine fundus is tonic and appropriately tender at the umbilicus.) - Labs Labs: Abnormal Lab Results - Last 24 Hours (Table) 09/08/24 09/09/24 Range/Units 17:38 05:18 WBC 11.71 H (4.50-10.00) 10*3/uL RBC 3.65 L 2.95 L (4.10-5.20) 10*6/uL Hgb 8.5 L 7.0 L D (12.0-15.0) g/dL Hct 27.7 L 22.8 L (37.2-46.3) % MCV 75.9 L 77.3 L (80.0-97.0) fL MCH 23.3 L 23.7 L (27.0-32.0) pg MCHC 30.7 L 30.7 L (32.0-37.0) g/dL Immature Gran # 0.05 H (0.00-0.04) 10*3/uL Neutrophils # 10.38 H (1.80-7.70) 10*3/uL Lymphocytes # 0.85 L (0.90-5.00) 10*3/uL Eosinophils # 0.00 L 0.01 L (0.04-0.35) 10*3/uL Assessment and Plan (1) Status post section Current Visit: Yes Status: Acute Code(s): Z98.891 - HISTORY OF UTERINE SCAR FROM PREVIOUS SURGERY SNOMED Code(s): 927336209 (2) Anemia Current Visit: Yes Status: Acute Code(s): D64.9 - ANEMIA, UNSPECIFIED SNOMED Code(s): 037349749 Plan: Continue routine and postoperative care. I have encouraged the patient ambulate in the hallways routinely. She is tolerating regular diet. Given her low hemoglobin, she will have a repeat CBC done tomorrow though anticipated cristofer during slightly lower than today given where she started and the amount of blood loss she had at surgery. Should she remain asymptomatic, she may not require any transfusion or consideration for same. We will await the next value for disposition.
[2024-09-09] MEDS: IBUPROFEN 800 MG TAB PO SCH (12:33)
[2024-09-10 06:48] LABS: HCT 22.2 % (37.2-46.3); MCH 23.6 pg (27.0-32.0); MCHC 31.1 g/dL (32.0-37.0); MCV 76.0 fL (80.0-97.0); Platelet Count 314 10*3/uL (140-440); RBC 2.92 10*6/uL (4.10-5.20); RDW 16.3 % (11.5-14.5); WBC 10.15 10*3/uL (4.50-10.00)
[2024-09-10 06:52] LABS: HGB 6.9 g/dL (12.0-15.0)
[2024-09-10 08:09] VITALS: RESP 18; TEMP 97.6
--- NOTE | 2024-09-10 08:54 | P.DS ---
Providers Date of admission: 09/08/24 06:19 Expected date of discharge: 09/10/24 Attending physician: June Arguello MD Primary care physician: Stated None - Discharge Diagnosis(es) (1) Status post section Current Visit: Yes Status: Acute (2) Anemia Current Visit: Yes Status: Acute Hospital Course: The patient is a 24-year-old 2 para 1-0-0-1 admitted at 39-2/7 weeks by good dating parameters. She is admitted for repeat low-transverse section after an uncomplicated . Group B strep status is negative. On labor and delivery, she was taken to the operating room where she was delivered by section of a viable 6 pound 0 ounce baby boy with Apgars of 8 at 1 minute and 9 at 5 minutes. The patient did have a fairly significant blood loss during the procedure but remained completely asymptomatic in the and postoperative phase. Her and postoperative course was unremarkable with vital signs remaining stable and her temperature was afebrile throughout. She was deemed stable for discharge on and postoperative day #2. She was discharged home to follow-up in the office in 2 weeks for an incision check in 6 weeks routinely. Discharge instructions included calling for any significantly increased bleeding or foul-smelling lochia, significantly increased fever abdominal pain, perineal complaints, breast complaints, incisional complaints, or anything else that concerned her. She was additionally instructed to have nothing in the vagina for at least 6 weeks time to include intercourse and to abstain from any heavy lifting over the same period of time. She was lastly instructed to do no driving until off of all pain medications or 2 weeks time, whichever came first. She understood her instructions and agrees to follow-up as noted above. Discharge medications included continued vitamins as she has opted to breast-feed. She was additionally to use [id number] analgesic pain medications and instructed to take iron sulfate 325 mg 1-2 times daily for another month to rebuild her hemoglobin. She was provided a prescription for oxycodone 5 mg, 1-2 p.o. every 6 hours as needed pain, #20 dispensed with no refills. Maternal blood type is O- and cord blood was sent for evaluation for the necessity of RhoGAM prior to discharge. Rubella status is immune. Discharge hemoglobin and hematocrit were 6.9 and 22.2 respectively which was an insignificant change from postoperative day #1 at which time it was 7.0 and 22.8. As noted above, the patient is asymptomatic from her anemia and will be treated solely with oral iron. Procedures: #1. Repeat low-transverse section Patient Condition at Discharge: Stable Plan - Discharge Summary Follow up Appointment(s)/Referral(s): June Arguello MD [STAFF PHYSICIAN] - 09/19/24 8:45 am (10/17/2024 @8:45 AM) Discharge Disposition: HOME SELF-CARE
[2024-09-10 13:01] VITALS: BP 126/82; PULSE 72
== END 2024-09-10 13:40 | disposition home or self-care (01) | DRG 540 ==
LOC: 4FBP 06:19
PROVIDERS: ADMIT Obstetrics & Gynecology; ATTEND Obstetrics & Gynecology
PROC: 10D00Z1 Extraction of Products of Conception, Low, Open Approach (ICD-10-PCS; principal; 2024-09-08 08:00)
DX: O34.211 Maternal care for low transverse scar from previous cesarean delivery (principal); D62 Acute posthemorrhagic anemia; O99.334 Smoking (tobacco) complicating childbirth; F17.290 Nicotine dependence, other tobacco product, uncomplicated; O99.892 Other specified diseases and conditions complicating childbirth; N73.6 Female pelvic peritoneal adhesions (postinfective); O90.81 Anemia of the puerperium; Z37.0 Single live birth; Z3A.39 39 weeks gestation of pregnancy
CPT/HCPCS: 85025; 85027; 86850; 86900; 86901